=== PATIENT | male | born 1970 | race Caucasian/White ===

== ENCOUNTER 2016-07-11 20:17 | Emergency (ER) | payer SELFPAY ==
[~2016-07-11] VITALS: Ht 185.4 cm; Wt 91.4 kg
[~2016-07-11 20:17] MED LIST: DUONEB 2.5-0.5 M3 ML AEROSOL; FLEXERIL10 MG PO; MOTRIN600 MG PO; OMEPRAZOLE20 MG PO; PERCOCET 5/31 TABLET PO; PREDNISONE20 MG PO; ULTRAM50 MG PO; VENTOLIN HFA18 GM IH; ZYRTEC10 M2 PO
[2016-07-11] MEDS ORDERED: PERCOCET 5/31 TABLET PO (20:46)
[2016-07-11] MEDS ORDERED: FLEXERIL10 MG PO (20:46)
[2016-07-11] MEDS ORDERED: MEDROL DOSEPAK4 MG PO (20:46)
[2016-07-11 21:00] VITALS: BP 146/96
== END 2016-07-11 21:01 | disposition home or self-care (01) ==
LOC: EXP 20:17 → EME 20:17 → EXP 21:01
DX: M54.42 Lumbago with sciatica, left side (principal)
CPT/HCPCS: 99281; 99283; J7512